=== PATIENT | male | born 1960 | race Caucasian/White ===

== ENCOUNTER → 2016-08-21 | Outpatient (CLI) | payer BC | LOC: US 14:45 | DX: R22.1 Localized swelling, mass and lump, neck (principal) | CPT/HCPCS: 76536 ==

== ENCOUNTER → 2020-06-08 | Outpatient (CLI) | payer BC, OTHER ==
[~2020-06-08] MED LIST: MUCINEX FAST-M180 M4 PO
== END ==
LOC: EXRD 08:51
DX: M25.551 Pain in right hip (principal); M25.552 Pain in left hip; G89.29 Other chronic pain
CPT/HCPCS: 73522

== ENCOUNTER 2020-07-20 14:40 | Emergency (ER) | payer BC, OTHER ==
[2020-07-20] MEDS ORDERED: MUCINEX FAST-M180 M4 PO (16:41)
== END 2020-07-20 16:45 | disposition home or self-care (01) ==
LOC: ER1 14:40
DX: R05 Cough (principal); R50.9 Fever, unspecified; I10 Essential (primary) hypertension; J45.909 Unspecified asthma, uncomplicated; Z20.822 Contact with and (suspected) exposure to COVID-19; E78.00 Pure hypercholesterolemia, unspecified
CPT/HCPCS: 0240U; 71046; 87081; 87880; 99283

== ENCOUNTER → 2021-03-16 | Outpatient (CLI) | payer BC, OTHER | LOC: SLEEP 14:33 | DX: G47.30 Sleep apnea, unspecified (principal); G47.33 Obstructive sleep apnea (adult) (pediatric) | CPT/HCPCS: 95811 ==